=== PATIENT | male | born 1945 | race Caucasian/White ===

== ENCOUNTER → 2024-04-17 06:26 | Day surgery (SDC) | payer MEDICARE, OTHER, SELFPAY | LOC: GI 06:26 | PROVIDERS: ATTENDING PHYSICIAN Internal Medicine | DX: D50.0 Iron deficiency anemia secondary to blood loss (chronic) (principal); K64.8 Other hemorrhoids; K55.21 Angiodysplasia of colon with hemorrhage; K57.30 Diverticulosis of large intestine without perforation or abscess without bleeding; K44.9 Diaphragmatic hernia without obstruction or gangrene; K31.7 Polyp of stomach and duodenum; K31.89 Other diseases of stomach and duodenum | CPT/HCPCS: 45385; 45380; 45382; 43239; 88305; 88342 ==